=== PATIENT | female | born 1985 | race Caucasian/White ===

== ENCOUNTER → 2018-05-23 | Outpatient (CLI) | payer OTHER | LOC: OD 08:47 | PROVIDERS: ATTEND Family Medicine | DX: E03.9 Hypothyroidism, unspecified (principal) | CPT/HCPCS: 36415; 84443 ==

== ENCOUNTER → 2018-07-28 | Outpatient (CLI) | payer OTHER | LOC: OD 10:29 | PROVIDERS: ATTEND Family Medicine | DX: E03.9 Hypothyroidism, unspecified (principal) | CPT/HCPCS: 36415; 84443 ==

== ENCOUNTER → 2018-11-28 | Outpatient (CLI) | payer MEDICAID | LOC: OD 12:52 | PROVIDERS: ATTEND Family Medicine | DX: E03.9 Hypothyroidism, unspecified (principal) | CPT/HCPCS: 36415; 84443 ==

== ENCOUNTER 2019-01-25 07:30 | Inpatient (IN) | payer MEDICAID ==
[2019-01-19 12:27] LABS: HEMATOCRIT 36.5 % (36.0-47.0); HEMOGLOBIN 11.8 g/dL (12.0-15.5); MEAN CORPUSCULAR HEMOGLOBIN 25.7 pg (27.0-33.4); MEAN CORPUSCULAR HGB CONC 32.4 g/dL (32.0-36.0); MEAN CORPUSCULAR VOLUME 79 fl (80-97); PLATELET COUNT 453 10^3/uL (150-450); RED CELL DISTRIBUTION WIDTH 17.9 % (11.5-14.0); WHITE BLOOD COUNT 11.6 10^3/uL (4.0-10.5)
[2019-01-19 12:40] LABS: APPEARANCE,URINE CLOUDY; BILIRUBIN,URINE NEGATIVE (NEGATIVE); COLOR,URINE YELLOW; GLUCOSE, URINE NEGATIVE (NEGATIVE); KETONES,URINE NEGATIVE (NEGATIVE); LEUKOCYTE ESTERASE,URINE SMALL (NEGATIVE); NITRITE,URINE NEGATIVE (NEGATIVE); PROTEIN,URINE NEGATIVE (NEGATIVE); URINE SPECIFIC GRAVITY 1.012; UROBILINOGEN,URINE NEGATIVE mg/dL (<2.0)
[2019-01-19 12:45] LABS: ALANINE AMINOTRANSFERASE 35 U/L (9-52); ALBUMIN 4.2 g/dL (3.5-5.0); ALKALINE PHOSPHATASE 135 U/L (38-126); ANION GAP 12 (5-19); ASPARTATE AMINO TRANSFERASE 33 U/L (14-36); BILIRUBIN,DIRECT 0.2 mg/dL (0.0-0.4); BILIRUBIN,TOTAL 0.3 mg/dL (0.2-1.3); BLOOD UREA NITROGEN 9 mg/dL (7-20); CALCIUM 10.2 mg/dL (8.4-10.2); CARBON DIOXIDE 22 mmol/L (22-30); CHLORIDE 105 mmol/L (98-107); GLUCOSE 83 mg/dL (75-110); POTASSIUM 4.5 mmol/L (3.6-5.0); SODIUM 138.9 mmol/L (137-145); TOTAL PROTEIN 7.6 g/dL (6.3-8.2)
--- NOTE | 2019-01-19 13:32 | RADIOLOGY REPORT (SQ) ---
EXAM DESCRIPTION: CHEST PA/LATERAL COMPLETED DATE/TIME: 01/19/2019 11:49 am REASON FOR STUDY: PRE-OP COMPARISON: None. EXAM PARAMETERS: NUMBER OF VIEWS: two views TECHNIQUE: Digital Frontal and Lateral radiographic views of the chest acquired. RADIATION DOSE: NA LIMITATIONS: none FINDINGS: LUNGS AND PLEURA: No opacities, masses or pneumothorax. No pleural effusion. MEDIASTINUM AND HILAR STRUCTURES: No masses or contour abnormalities. HEART AND VASCULAR STRUCTURES: Heart normal size. No evidence for failure. BONES: No acute findings. HARDWARE: None in the chest. OTHER: No other significant finding. IMPRESSION: NO SIGNIFICANT RADIOGRAPHIC FINDING IN THE CHEST. TECHNICAL DOCUMENTATION: JOB ID: [id number] [employer]- All Rights Reserved Reading location - IP/workstation name: [email or web address]
--- NOTE | 2019-01-20 13:09 | EKG REPORT ---
SEVERITY:- BORDERLINE ECG - SINUS RHYTHM BORDERLINE T ABNORMALITIES, ANTERIOR LEADS : Confirmed by: Fabian Lau 20-Jan-2019 13:08:27
[2019-02-15] MEDS ORDERED: CEFAZOLIN 1 GM/D5W RTU 1 GM/50 ML RTUPB IV PRN (05:00)
[2019-02-15] MEDS ORDERED: LACTATED RINGERS 1000 ML IV PRN (05:00)
[2019-02-15] MEDS ORDERED: SUCCINYLCHOLINE CHLORIDE INJ 200 MG/10 ML VIAL ONE (09:56)
[2019-02-15] MEDS ORDERED: ONDANSETRON HCL INJ/PF 4 MG/2 ML SDV ONE (09:56)
[2019-02-15] MEDS ORDERED: LIDOCAINE 2% INJ-PF (20 MG/ML) 2 ML AMPUL ONE (09:56)
[2019-02-15] MEDS ORDERED: DEXAMETHASONE SOD PHOSPHATE INJ 4 MG/1 ML VIAL ONE (09:56)
[2019-02-15] MEDS ORDERED: KETOROLAC TROMETHAMINE 60 MG/2 ML SDV ONE (09:56)
[2019-02-15] MEDS ORDERED: ROCURONIUM BROMIDE INJ 50 MG/5 ML VIAL IV ONE (09:56)
[2019-02-15] MEDS ORDERED: CEFAZOLIN 1 GM/D5W RTU 1 GM/50 ML RTUPB IV ONE (11:09)
[2019-02-15] MEDS ORDERED: HYDROMORPHONE HCL INJ/PF 2 MG/ML AMPULE ONE (11:12)
[2019-02-15] MEDS ORDERED: FENTANYL CITRATE INJ/PF 100 MCG/2 ML AMPUL ONE (11:12)
[2019-02-15] MEDS ORDERED: MIDAZOLAM 2 MG/2 ML INJ ONE (11:12)
[2019-02-15] MEDS ORDERED: PROPOFOL INJ 200 MG/20 ML VIAL IV ONE (11:13)
[2019-02-15] MEDS ORDERED: ACETAMINOPHEN 1,000 MG/100 ML RTUPB IV ONE ×3 (11:13→19:00)
[2019-02-15] MEDS ORDERED: BUPIVACAINE HCL 0.5%-EPI 1:200000 INJ/PF 30 ML VIAL ONE (11:16)
[2019-02-15] MEDS ORDERED: FENTANYL CITRATE INJ/PF 100 MCG/2 ML AMPUL IV PRN ×3 (11:55)
[2019-02-15] MEDS ORDERED: MEPERIDINE HCL/PF INJ 25 MG/1 ML DISP.SYRIN IV PRN (11:55)
[2019-02-15] MEDS ORDERED: MORPHINE SULFATE 10 MG/ML INJ IV PRN (11:55)
[2019-02-15] MEDS ORDERED: DIPHENHYDRAMINE HCL 50 MG/ML VIAL IV PRN (11:55)
[2019-02-15] MEDS ORDERED: IBUPROFEN 800 MG TABLET PO PRN (14:15)
[2019-02-15] MEDS ORDERED: RINGERS SOLUTION,LACTATED 1,000 ML IV PRN (14:16)
[2019-02-15] MEDS: MORPHINE SULFATE 10 MG/ML INJ IV PRN ×2 (17:37→23:21)
[2019-02-15] MEDS: METRONIDAZOLE 500 MG/NS RTU 500 MG/100 ML RTUPB IV SCH (18:51)
[2019-02-15] MEDS: KETOROLAC TROMETHAMINE INJ/PF 30 MG/1 ML SDV IV SCH (22:16)
[2019-02-16] MEDS: OXYCODONE-ACETAMINOPHEN 5-325 MG TABLET PO PRN ×2 (02:38→08:10)
[2019-02-16] MEDS: METRONIDAZOLE 500 MG/NS RTU 500 MG/100 ML RTUPB IV SCH (05:05)
[2019-02-16] MEDS: KETOROLAC TROMETHAMINE INJ/PF 30 MG/1 ML SDV IV SCH (05:05)
--- NOTE | 2019-02-16 07:37 | OPERATIVE REPORT E ---
Operative Report NAME: AYDE CHOE : 1985 AGE: 33Y DATE OF SURGERY: 02/15/2019 ROOM: 210 PREOPERATIVE DIAGNOSES: 1. ABNORMAL UTERINE BLEEDING. 2. CHRONIC PELVIC PAIN. 3. PERSISTENT OVARIAN CYST. POSTOPERATIVE DIAGNOSES: 1. ABNORMAL UTERINE BLEEDING. 2. CHRONIC PELVIC PAIN. 3. PERSISTENT OVARIAN CYST. OPERATION: Laparoscopic assisted vaginal hysterectomy with right salpingo-oophorectomy and left salpingectomy. SURGEON: AKOSUA MENJIVAR M.D. GRAIN LOADER: Mimi Brown [facility] surgical instrument mechanic. ANESTHESIA: Eddie Diaz M.D. with general. FINDINGS: The uterus is sounded to approximately 14 cm. Boggy in appearance, consistent with adenomyosis. The tubes were normal in appearance on both sides and there was a follicular cyst of the right ovary. COMPLICATIONS: None. ESTIMATED BLOOD LOSS: 150 mL. SPECIMENS REMOVED: Uterus, cervix, and bilateral fallopian tubes and a right ovary. PROCEDURE IN DETAIL: The patient was taken to the operating room, prepared and draped in a normal sterile fashion in a dorsal lithotomy position. Under sterile conditions a Lutz catheter was placed to gravity. A sterile speculum was placed into the vagina and a Hulka clamp was placed in the cervix for uterine manipulation without difficulty. The speculum was removed. Gloves were changed and attention was turned to the upper portion of the case. An umbilical skin incision was made to accommodate a 5 mm port. A Veress needle was introduced into the abdomen and peritoneal cavity. Placement was confirmed with free flowing sterile water through the Veress. The abdomen was then inflated with approximately 2 liters of CO2 gas and Veress was removed and a 5 mm port was placed through this incision. The camera was introduced and the patient was placed in Trendelenburg. Two 5 mm ports were then placed on either side of the umbilicus approximately 10 cm on either side. Beginning with the left fallopian tube, this was removed using LigaSure and the utero-ovarian ligament was then transected and the left uterine artery was carefully skeletonized with LigaSure and blunt dissection. We continued with ligation of the uterine artery down to the level of the bladder flap and this was started again using LigaSure and blunt dissection. Attention was then turned to the right adnexa where the right IP ligament was located and this was transected using the LigaSure. And we continued ligation of the uterine ovarian ligament using the LigaSure and continued skeletonization of the uterine artery with this device as well. The uterine artery was again ligated using the LigaSure down to the level of the bladder flap, which was completed with LigaSure and blunt dissection. We continued with further ligation of the uterine artery on both sides using LigaSure until I felt that we were at the level of the internal cervical os. We then concluded this part of the procedure and went below to complete the hysterectomy. A weighted speculum was placed into the posterior vagina and a was placed just beneath the bladder. The cervix was grasped with a triple-tooth Ugo both anteriorly and posteriorly. The cervix was injected circumferentially using 10 mL of lidocaine 1% with epinephrine. This was massaged into the mucosa. The mucosa was then scored circumferentially around the cervix using a 10 blade and the mucosa was carefully sharply dissected using Mayos. The anterior cul-de-sac was then entered sharply using the Mayos and the was repositioned below the defect. Posteriorly the cul-de-sac was entered sharply with the Mayos as well and the weighted speculum was changed to a long weighted speculum. I then clamped both uterosacral ligaments using Jason clamps and these were suture ligated with 0-Vicryl and tagged with hemostats. The rest of the uterine artery was then transected using the LigaSure on both sides until the specimen was completely freed and removed through the defect. The weighted speculum was replaced with a short weighted speculum and the was repositioned to be able to visualize the anterior vaginal cuff. This was carefully inspected for hemostasis and there was no bleeding noted. The vaginal cuff was then closed with a running locked 0-Vicryl and the sutures were cut and the vaginal cuff was inspected and found to be intact. I then concluded this portion of the case and re-gloved and turned attention to the upper portion of the case. I re-inflated the abdomen with CO2 gas and inspected the peritoneal cavity once more to ensure hemostasis. The ureters were inspected and found to be peristalsing on both sides. The vaginal cuff was found to be intact with no signs of bleeding noted. The instruments were then removed and the abdomen was deflated through the umbilical port and trocars were all removed. The skin was closed at all 3 sites using 4-0 Vicryl. The patient tolerated the procedure well. Sponge, lap, and needle counts were correct x2 and the patient was taken to recovery in stable condition. DICTATING PHYSICIAN: AKOSUA MENJIVAR M.D. [id number] PHY#: [id number] ID: [id number] JOB#: [id number] ACCT: [id number] cc:AKOSUA MENJIVAR M.D. >
[2019-02-16 08:38] LABS: HEMATOCRIT 31.7 % (36.0-47.0); HEMOGLOBIN 10.1 g/dL (12.0-15.5); MEAN CORPUSCULAR HEMOGLOBIN 25.4 pg (27.0-33.4); MEAN CORPUSCULAR HGB CONC 31.9 g/dL (32.0-36.0); MEAN CORPUSCULAR VOLUME 80 fl (80-97); PLATELET COUNT 441 10^3/uL (150-450); RED BLOOD COUNT 3.99 10^6/uL (3.72-5.28); RED CELL DISTRIBUTION WIDTH 17.3 % (11.5-14.0); WHITE BLOOD COUNT 15.4 10^3/uL (4.0-10.5)
--- NOTE | 2019-02-16 10:58 | PDOC DISCHARGE SUMMARY ---
General - Admit/Disc Date/PCP Admission Date/Primary Care Provider: 02/15/19 09:31 ALIN BREAUX MD Discharge Date: 02/16/19 - Discharge Diagnosis (1) s/p right salpingo-oophorectomy Is this a current diagnosis for this admission?: Yes (2) Abnormal uterine and vaginal bleeding, unspecified Is this a current diagnosis for this admission?: Yes (3) Chronic pelvic pain in female Is this a current diagnosis for this admission?: Yes (4) Ovarian cyst Is this a current diagnosis for this admission?: Yes (5) S/P hysterectomy Is this a current diagnosis for this admission?: Yes - Additional Information Home Medications: Amitriptyline HCl [Elavil 25 mg Tablet] 25 mg PO QHS 02/15/19 Aripiprazole 5 mg PO DAILY 02/15/19 Atenolol [Tenormin] 25 mg PO DAILY 02/15/19 Baclofen 5 mg PO TID 02/15/19 Escitalopram Oxalate 20 mg PO HSP PRN 02/15/19 Hydrochlorothiazide 12.5 mg PO DAILY 02/15/19 Levothyroxine Sodium 137 mcg PO DAILY 02/15/19 Lorazepam [Ativan 0.5 mg Tablet] 0.5 mg PO Q4 PRN 02/15/19 Methylphenidate HCl [Ritalin] 20 mg PO DAILY 02/15/19 Pregabalin [Lyrica 100 Mg Capsule] 150 mg PO TID 02/15/19 Ranitidine HCl 150 mg PO DAILY 02/15/19 Venlafaxine HCl [Effexor 75 mg Tablet] 75 mg PO DAILY 02/15/19 Zolpidem Tartrate [Ambien 5 mg Tablet] 5 mg PO HSP PRN 02/15/19 History of Present Illness History of Present Illness: AYDE CHOE is a 33 year old female Hospital Course Hospital Course: underwent LAVH w/ RSO and left salpingectomy without difficulty. Unremarkable postoperative course. passing flatus and tolerating regular diet Physical Exam - Physical Exam Vital Signs: Temp Pulse Resp BP Pulse Ox 97.7 F 86 16 114/71 96 02/16/19 07:53 02/16/19 07:53 02/16/19 07:53 02/16/19 07:53 02/16/19 07:53 Intake & Output 02/15/19 02/16/1902/17/19 06:59 06:59 06:59 Intake Total 2830 Output Total 1050 Balance 1780 Weight 94.6 kg General appearance: PRESENT: no acute distress, cooperative - incisions clean/dry and intact Result Laboratory Results: 02/16/19 07:26 02/15/19 10:21 02/15/19 02/16/19 10:21 07:26 WBC 15.4 H RBC 3.99 Hgb 10.1 L Hct 31.7 L MCV 80 MCH 25.4 L MCHC 31.9 L RDW 17.3 H Plt Count 441 Potassium 4.1 Impressions: Chest X-Ray 01/19/19 00:00 IMPRESSION: NO SIGNIFICANT RADIOGRAPHIC FINDING IN THE CHEST. Plan Discharge Plan: discharge home with scheduled follow up Time Spent: Less than 30 Minutes Acute Heart Failure Is this a Heart Failure Patient?: No
[2019-02-16 11:35] VITALS: BP 107/69
== END 2019-02-16 11:56 | disposition home or self-care (01) | DRG 743 ==
LOC: EDSTATUS 02-15 09:00 → 2N 02-15 09:31 → OROUT 02-15 09:31
PROVIDERS: ADMIT Obstetrics & Gynecology; ATTEND Obstetrics & Gynecology
PROC: 0UT7FZZ Resection of Bilateral Fallopian Tubes, Via Natural or Artificial Opening With Percutaneous Endoscopic Assistance (ICD-10-PCS; 2019-02-15)
PROC: 0UT0FZZ Resection of Right Ovary, Via Natural or Artificial Opening With Percutaneous Endoscopic Assistance (ICD-10-PCS; 2019-02-15)
PROC: 0UT9FZZ Resection of Uterus, Via Natural or Artificial Opening With Percutaneous Endoscopic Assistance (ICD-10-PCS; principal; 2019-02-15 12:00)
DX: N92.1 Excessive and frequent menstruation with irregular cycle (principal); N83.201 Unspecified ovarian cyst, right side; G89.29 Other chronic pain; R10.2 Pelvic and perineal pain; F41.9 Anxiety disorder, unspecified; F31.9 Bipolar disorder, unspecified; G43.909 Migraine, unspecified, not intractable, without status migrainosus; Z83.3 Family history of diabetes mellitus; Z82.49 Family history of ischemic heart disease and other diseases of the circulatory system; Z79.899 Other long term (current) drug therapy
CPT/HCPCS: 36415; 71046; 80053; 81001; 81025; 840; 84132; 85027; 86850; 86900; 86901; 88307; 93005; 93010; J0131; J0330; J0690; J1100; J1170; J1885; J2250; J2270; J2405; J2704; J3010; J3490; J7120

== ENCOUNTER → 2019-05-23 | Outpatient (CLI) | payer MEDICAID ==
--- NOTE | 2019-05-23 12:12 | RADIOLOGY REPORT (SQ) ---
EXAM DESCRIPTION: WRIST LEFT 2 VIEWS COMPLETED DATE/TIME: 05/23/2019 10:57 am REASON FOR STUDY: PAIN IN LEFT WRIST M25.532 PAIN IN LEFT WRIST COMPARISON: None. NUMBER OF VIEWS: Two views. TECHNIQUE: AP and lateral radiographic images acquired of the left wrist. LIMITATIONS: None. FINDINGS: MINERALIZATION: Normal. BONES: No acute fracture or dislocation. No worrisome bone lesions. Ulnar positive variance. SOFT TISSUES: No soft tissue swelling. No foreign body. OTHER: No other significant finding. IMPRESSION: No evidence of fracture. Ulnar positive variance with mild widening at the distal radioulnar joint may represent ligamentous i njury. TECHNICAL DOCUMENTATION: JOB ID: [id number] [employer]- All Rights Reserved Reading location - IP/workstation name: [email or web address]
== END ==
LOC: OD 10:46
PROVIDERS: ATTEND Family Medicine
DX: M25.532 Pain in left wrist (principal)

== ENCOUNTER → 2019-07-09 | Outpatient (CLI) | payer MEDICAID ==
[2019-07-09 16:21] LABS: ABSOLUTE EOSINOPHILS # (AUTO) 0.2 10^3/uL (0.0-0.6); ABSOLUTE LYMPHOCYTES (AUTO) 2.1 10^3/uL (0.5-4.7); ABSOLUTE MONOCYTES (AUTO) 0.5 10^3/uL (0.1-1.4); ABSOLUTE NEUT (AUTO) 4.8 10^3/uL (1.7-8.2); BASOPHILS % (AUTO) 0.6 % (0-2); EOSINOPHILS % (AUTO) 2.7 % (0-6); HEMATOCRIT 36.1 % (36.0-47.0); HEMOGLOBIN 11.7 g/dL (12.0-15.5); LYMPHOCYTES % (AUTO) 27.8 % (13-45); MEAN CORPUSCULAR HGB CONC 32.4 g/dL (32.0-36.0); MEAN CORPUSCULAR VOLUME 77 fl (80-97); MONOCYTES % (AUTO) 6.5 % (3-13); PLATELET COUNT 520 10^3/uL (150-450); RED BLOOD COUNT 4.66 10^6/uL (3.72-5.28); RED CELL DISTRIBUTION WIDTH 17.4 % (11.5-14.0); SEGMENTED NEUTROPHILS % (AUTO) 62.4 % (42-78); TOTAL CELLS COUNTED % (AUTO) 100 %; WHITE BLOOD COUNT 7.7 10^3/uL (4.0-10.5)
[2019-07-09 16:44] LABS: ALBUMIN 4.3 g/dL (3.5-5.0); ALKALINE PHOSPHATASE 117 U/L (38-126); ANION GAP 13 (5-19); ASPARTATE AMINO TRANSFERASE 49 U/L (14-36); BILIRUBIN,DIRECT 0.1 mg/dL (0.0-0.4); BILIRUBIN,TOTAL 0.2 mg/dL (0.2-1.3); BLOOD UREA NITROGEN 7 mg/dL (7-20); CALCIUM 9.5 mg/dL (8.4-10.2); CARBON DIOXIDE 25 mmol/L (22-30); CHLORIDE 101 mmol/L (98-107); GLUCOSE 85 mg/dL (75-110); POTASSIUM 3.6 mmol/L (3.6-5.0); TOTAL PROTEIN 7.1 g/dL (6.3-8.2)
== END ==
LOC: OD 15:16
PROVIDERS: ATTEND Family Medicine
DX: M79.7 Fibromyalgia (principal); E03.9 Hypothyroidism, unspecified
CPT/HCPCS: 36415; 80053; 84443; 85025

== ENCOUNTER → 2019-08-10 | Outpatient (CLI) | payer MEDICAID ==
--- NOTE | 2019-08-10 10:03 | RADIOLOGY REPORT (SQ) ---
EXAM DESCRIPTION: MRI LT UPPER JOINT WITHOUT COMPLETED DATE/TIME: 08/10/2019 9:18 am REASON FOR STUDY: PAIN IN LEFT WRIST (M25.532), SECONDARY OA LEFT WRIST (M19.239), OTHER SPEC M24.83 2 OTH SPECIFIC JOINT DERANGEMENTS OF LEFT WRIST, NEC M19.239 SECONDARY OSTEOARTHRITIS, UNSPECIFIED WRIST M25.532 PAIN IN LEFT WRIST COMPARISON: None. TECHNIQUE: Left wrist images acquired and stored on PACS. Multiplanar images include fat sensitive sequences as T1, fluid sensitive sequences as FST2/STIR, cartilage sensitive sequences as FSPD, gradi ent echo sequences. LIMITATIONS: Motion. FINDINGS: BONE MARROW: No alteration of signal to suggest marrow replacement or edema. No occult fra cture. No large osteophytes. CARPAL ALIGNMENT AND ARTICULATION: Normal congruity of sigmoid notch at level of distal RUJ without p ositive or negative ulnar variance. Normal capitolunate angle. No widening of scapholunate articulati on. EFFUSION: None noted. No loose bodies. SCAPHOLUNATE LIGAMENT: Intact without tear. LUNATE-TRIQUETRAL LIGAMENT: Intact without tear. TFC COMPLEX: Radial and ulnar attachments normal. Meniscus intact. Extensor carpi ulnaris tendon norm al without tendinopathy. EXTRINSIC LIGAMENTS AND DISTAL RADIO-ULNAR JOINT: Dorsal and volar distal RUJ intact without subluxat ion of the distal ulna. 1-6 EXTENSOR COMPARTMENTS: Normal. Specifically no tendinopathy of the abductor pollicis longus or ex tensor pollicis brevis to suggest de Quervain's Syndrome. CARPAL TUNNEL AND MEDIAN NERVE: Normal volume and morphology of the carpal tunnel proximally at the l evel of the radiocarpal joint and distally at the hook of the hamate. No thickening or signal alterat ion of the median nerve. OTHER: No other significant finding. IMPRESSION: No acute findings. TECHNICAL DOCUMENTATION: JOB ID: [id number] [employer]- All Rights Reserved Reading location - IP/workstation name: [email or web address]
== END ==
LOC: RAD 08:29
PROVIDERS: ATTEND Orthopaedic Surgery
DX: M24.832 Other specific joint derangements of left wrist, not elsewhere classified (principal); M25.532 Pain in left wrist; M19.239 Secondary osteoarthritis, unspecified wrist

== ENCOUNTER → 2019-10-26 | Outpatient (CLI) | payer MEDICAID | LOC: OD 11:49 | PROVIDERS: ATTEND Family Medicine | DX: R53.83 Other fatigue (principal) | CPT/HCPCS: 36415; 84443 ==

== ENCOUNTER → 2019-12-06 | Outpatient (CLI) | payer MEDICAID ==
[2019-12-06 16:27] LABS: ABSOLUTE EOSINOPHILS # (AUTO) 0.3 10^3/uL (0.0-0.6); ABSOLUTE LYMPHOCYTES (AUTO) 1.8 10^3/uL (0.5-4.7); ABSOLUTE MONOCYTES (AUTO) 0.6 10^3/uL (0.1-1.4); ABSOLUTE NEUT (AUTO) 6.3 10^3/uL (1.7-8.2); BASOPHILS % (AUTO) 0.4 % (0-2); HEMATOCRIT 43.2 % (36.0-47.0); HEMOGLOBIN 14.4 g/dL (12.0-15.5); LYMPHOCYTES % (AUTO) 20.3 % (13-45); MEAN CORPUSCULAR HEMOGLOBIN 27.7 pg (27.0-33.4); MEAN CORPUSCULAR HGB CONC 33.2 g/dL (32.0-36.0); MEAN CORPUSCULAR VOLUME 83 fl (80-97); MONOCYTES % (AUTO) 6.5 % (3-13); PLATELET COUNT 425 10^3/uL (150-450); RED BLOOD COUNT 5.18 10^6/uL (3.72-5.28); RED CELL DISTRIBUTION WIDTH 17.3 % (11.5-14.0); SEGMENTED NEUTROPHILS % (AUTO) 69.8 % (42-78); TOTAL CELLS COUNTED % (AUTO) 100 %
[2019-12-06 16:49] LABS: ALBUMIN 4.4 g/dL (3.5-5.0); ALKALINE PHOSPHATASE 127 U/L (38-126); ANION GAP 8 (5-19); ASPARTATE AMINO TRANSFERASE 55 U/L (14-36); BILIRUBIN,TOTAL 0.2 mg/dL (0.2-1.3); BLOOD UREA NITROGEN 11 mg/dL (7-20); CALCIUM 10.1 mg/dL (8.4-10.2); CARBON DIOXIDE 28 mmol/L (22-30); CHLORIDE 105 mmol/L (98-107); GLUCOSE 109 mg/dL (75-110); POTASSIUM 4.6 mmol/L (3.6-5.0); TOTAL PROTEIN 7.8 g/dL (6.3-8.2)
== END ==
LOC: OD 15:05
PROVIDERS: ATTEND Psychiatry & Neurology Psychiatry
DX: Z79.899 Other long term (current) drug therapy (principal)
CPT/HCPCS: 36415; 80053; 84443; 85025

== ENCOUNTER → 2019-12-12 | Outpatient (CLI) | payer MEDICAID ==
[2019-12-12 11:07] LABS: CHOLESTEROL 252.26 mg/dL (0-200); TRIGLYCERIDES 191 mg/dL (<150)
[2019-12-12 11:18] LABS: DIRECT LDL 160 mg/dL (<100)
[2019-12-12 11:21] LABS: VLDL CHOLESTEROL 38.2 mg/dL (10-31)
== END ==
LOC: OD 10:02
PROVIDERS: ATTEND Family Medicine
DX: E03.9 Hypothyroidism, unspecified (principal); Z79.899 Other long term (current) drug therapy
CPT/HCPCS: 36415; 80061; 84443

== ENCOUNTER → 2020-02-15 | Outpatient (CLI) | payer MEDICAID | LOC: OD 10:34 | PROVIDERS: ATTEND Family Medicine | DX: E03.9 Hypothyroidism, unspecified (principal) | CPT/HCPCS: 36415; 84443 ==

== ENCOUNTER 2020-04-15 19:55 | Emergency (ER) | payer MEDICAID ==
[2020-04-15] MEDS ORDERED: DIPH/PERTUSS(ACELL)/TETANUS VAC/PF 0.5 ML SYR (>=10YO) IM ONE (20:54)
--- NOTE | 2020-04-15 20:56 | ER Document Report ---
ED Medical Screen (RME) - General Chief Complaint: Laceration Stated Complaint: FINGER INJURY Time Seen by Provider: 04/15/20 20:50 Primary Care Provider: ALIN BREAUX MD [Primary Care Provider] - Follow up as needed Mode of Arrival: Ambulatory Information source: Patient Notes: 33-year-old female presented to ED for laceration to the pad of the left thumb. She states she was cutting a spaghetti can about 1910 tonight. She states she went to throw the can away and the lead popped up cutting her thumb. She is alert oriented respirations regular nonlabored speaking in full sentences. She does not know when her last tetanus shot was so I have ordered her tetanus immunization in the dinh-area. She does have a history of high blood pressure hypothyroid scoliosis anxiety depression fibromyalgia breast implants hysterectomy. She will need sutures. I have greeted and performed a rapid initial assessment of this patient. A comprehensive ED assessment and evaluation of the patient, analysis of test results and completion of medical decision making process will be conducted by an additional ED providers. TRAVEL OUTSIDE OF THE [place] IN LAST 30 DAYS: No - Related Data Allergies/Adverse Reactions: promethazine [From Phenergan] Allergy (Severe, Verified 04/15/20 20:50) Anaphylaxis Past Medical History - Past Medical History Cardiac Medical History: Reports: Hx Hypertension Denies: Hx Coronary Artery Disease, Hx Heart Attack Pulmonary Medical History: Denies: Hx Asthma, Hx Bronchitis, Hx COPD, Hx Pneumonia Neurological Medical History: Denies: Hx Cerebrovascular Accident, Hx Seizures Musculoskeltal Medical History: Denies Hx Arthritis - Immunizations Hx Diphtheria, Pertussis, Tetanus Vaccination: Yes Physical Exam - Vital signs Vitals: Temp Pulse Resp BP Pulse Ox 98.7 F 113 H 20 114/74 99 04/15/20 20:02 04/15/20 20:02 04/15/20 20:02 04/15/20 20:02 04/15/20 20:02 Course - Vital Signs Vital signs: Temp Pulse Resp BP Pulse Ox 98.7 F 113 H 20 114/74 99 04/15/20 20:02 04/15/20 20:02 04/15/20 20:02 04/15/20 20:02 04/15/20 20:02 Doctor's Discharge - Discharge Referrals: BREAUX,SEQUIA A, MD [Primary Care Provider] - Follow up as needed
[2020-04-15] MEDS ORDERED: LIDOCAINE 1% INJ-PF (10 MG/ML) 30 ML SDV INJ ONE (22:29)
--- NOTE | 2020-04-15 22:30 | ER Document Report ---
HPI - HPI Time Seen by Provider: 04/15/20 20:50 Pain Level: 2 Context: Patient is a 33-year-old female that comes emergency department for chief complaint of laceration to the finger pad inside of the left thumb. She states that she accidentally cut her thumb on the lid of a metal can just prior to arrival. She denies any other injuries. Patient is unsure of tetanus status and she received an update in triage. She is not on blood thinner, denies history of diabetes, she has had a hysterectomy. Past Medical History - General Information source: Patient - Social History Smoking Status: Never Smoker Frequency of alcohol use: None Drug Abuse: None Lives with: Family Family History: Reviewed & Not Pertinent Patient has homicidal ideation: No - Past Medical History Cardiac Medical History: Reports: Hx Hypertension Denies: Hx Coronary Artery Disease, Hx Heart Attack Pulmonary Medical History: Denies: Hx Asthma, Hx Bronchitis, Hx COPD, Hx Pneumonia Neurological Medical History: Denies: Hx Cerebrovascular Accident, Hx Seizures Musculoskeletal Medical History: Denies Hx Arthritis - Immunizations Hx Diphtheria, Pertussis, Tetanus Vaccination: Yes Vertical Provider Document - CONSTITUTIONAL General Appearance: WD/WN, No Apparent Distress - INFECTION CONTROL TRAVEL OUTSIDE OF THE [place] IN LAST 30 DAYS: No - HEENT HEENT: Atraumatic, Normocephalic - RESPIRATORY Respiratory: Breath Sounds Normal, No Respiratory Distress - CARDIOVASCULAR Cardiovascular: Regular Rate, Regular Rhythm. negative: Tachycardia - GI/ABDOMEN Gastrointestinal: Abdomen Soft, Abdomen Non-Tender. negative: Abdomen Tender - BACK Back: Normal Inspection - MUSCULOSKELETAL/EXTREMETIES Musculoskeletal/Extremeties: MAEW, FROM, Tender - There is a 2 cm V-shaped laceration over the left lateral thumb including part of the thumb pad, partial- thickness. Easily explored, no evidence of tendon, large vessel, or nerve involvement. Unremarkable exam otherwise. Full strength and range of motion in flexion and extension and resistance. Course - Re-evaluation Re-evalutation: Evaluation easily explored, no concerning findings, cleaned thoroughly, closed. Discussed care, follow-up, return precautions. Patient states understanding and agreement. - Vital Signs Vital signs: Temp Pulse Resp BP Pulse Ox 98.7 F 113 H 20 114/74 99 04/15/20 20:50 04/15/20 20:02 04/15/20 20:02 04/15/20 20:02 04/15/20 20:02 Procedures - Laceration/Wound Repair left thumb Wound length (cm): 2 Wound's Depth, Shape: Irregular Laceration pre-procedure: Sterile PPE donned, Sterile drapes applied, Shur-Clens applied Anesthetic type: 1% Lidocaine Volume Anesthetic (mLs): 3 Wound explored: Clean, No foreign body removed Wound Repaired With: Sutures Suture Size/Type: 5:0, Ethilon Number of Sutures: 5 Layer Closure?: No Post-procedure wound care: Sterile dressing applied Post-procedure NV exam normal: Yes Complications: No Discharge - Discharge Clinical Impression: Laceration of left thumb Qualifiers: Encounter type: initial encounter Damage to nail status: without damage Foreign body presence: without foreign body Qualified Code(s): S61.012A - Laceration without foreign body of left thumb without damage to nail, initial encounter Condition: Stable Disposition: HOME, SELF-CARE Additional Instructions: The wound was repaired with sutures. Keep clean, clean with soap and water, dab dry, avoid soaking or scrubbing. You can apply thin film of topical antibiotic. Sutures need to be removed in about 7 days at a medical facility. Return sooner for any concerning symptoms including signs of infection such as developing pain, swelling, redness, discolored discharge, fever, or any other concerning symptoms. Referrals: ALIN BREAUX MD [Primary Care Provider] - Follow up as needed
[2020-04-15 23:56] VITALS: BP 102/65
== END 2020-04-16 | disposition home or self-care (01) ==
LOC: ER 19:55
DX: S61.012A Laceration without foreign body of left thumb without damage to nail, initial encounter (principal); W26.8XXA Contact with other sharp object(s), not elsewhere classified, initial encounter; Z23 Encounter for immunization; I10 Essential (primary) hypertension
CPT/HCPCS: 99282; 90471; 90715; 12001; J3490

== ENCOUNTER → 2020-05-07 | Outpatient (CLI) | payer MEDICAID ==
[2020-05-07 10:48] LABS: ALBUMIN 4.4 g/dL (3.5-5.0); ALKALINE PHOSPHATASE 86 U/L (38-126); ASPARTATE AMINO TRANSFERASE 34 U/L (14-36); BILIRUBIN,TOTAL 0.2 mg/dL (0.2-1.3); CHOLESTEROL 211.92 mg/dL (0-200); TOTAL PROTEIN 7.5 g/dL (6.3-8.2); TRIGLYCERIDES 254 mg/dL (<150)
[2020-05-07 10:59] LABS: DIRECT LDL 125 mg/dL (<100)
[2020-05-07 11:05] LABS: VLDL CHOLESTEROL 50.8 mg/dL (10-31)
== END ==
LOC: OD 09:31
PROVIDERS: ATTEND Family Medicine
DX: E03.9 Hypothyroidism, unspecified (principal); R94.5 Abnormal results of liver function studies; E78.89 Other lipoprotein metabolism disorders
CPT/HCPCS: 36415; 80061; 80076; 84443

== ENCOUNTER → 2020-06-23 | Outpatient (CLI) | payer MEDICAID | LOC: OD 11:03 | PROVIDERS: ATTEND Family Medicine | DX: E03.9 Hypothyroidism, unspecified (principal) | CPT/HCPCS: 36415; 84443 ==

== ENCOUNTER → 2020-07-02 | Outpatient (CLI) | payer MEDICAID ==
--- NOTE | 2020-07-02 11:40 | RADIOLOGY REPORT (SQ) ---
EXAM DESCRIPTION: U/S THYROID/SFT TISS HD NECK IMAGES COMPLETED DATE/TIME: 07/02/2020 8:52 am REASON FOR STUDY: E03.9 HYPOTHYROIDISM, UNSPECIFIED E03.9 HYPOTHYROIDISM, UNSPECIFIED COMPARISON: None. TECHNIQUE: Dynamic and static eng-scale images acquired of the thyroid gland. Selected additional c olor/power Doppler images recorded. All images stored to PACS. LIMITATIONS: None. FINDINGS: RIGHT LOBE: Normal size. Homogeneous echotexture. Single 9 x 8 x 9 mm hypoechoic nodule. This contains small cyst. It has a spongiform configuration. LEFT LOBE: Normal size. Homogeneous echotexture. No cystic or solid masses. ISTHMUS: Normal size. Homogeneous echotexture. No cystic or solid masses. OTHER: No other significant finding. IMPRESSION: Small spongiform lesion in the right lobe under 1 cm in size. This is a used TR 1 lesio n. No follow-up is needed. TECHNICAL DOCUMENTATION: JOB ID: [id number] 2010 [employer]- All Rights Reserved Reading location - IP/workstation name: [email or web address]
== END ==
LOC: RAD 08:10
PROVIDERS: ATTEND Family Medicine
DX: E03.9 Hypothyroidism, unspecified (principal); E04.1 Nontoxic single thyroid nodule
CPT/HCPCS: 76536

== ENCOUNTER → 2020-08-15 | Outpatient (CLI) | payer MEDICAID | LOC: OD 11:31 | PROVIDERS: ATTEND Family Medicine | DX: E03.9 Hypothyroidism, unspecified (principal) | CPT/HCPCS: 36415; 84443 ==

== ENCOUNTER 2020-09-07 09:58 | Emergency (ER) | payer MEDICAID ==
--- NOTE | 2020-09-07 10:26 | ER Document Report ---
ED Medical Screen (RME) - General Chief Complaint: Arm Pain Stated Complaint: RIGHT ARM PAIN Time Seen by Provider: 09/07/20 10:21 Primary Care Provider: ALIN BREAUX MD [Primary Care Provider] - Follow up as needed Notes: HPI: 35-year-old female with history of chronic pain issues including fibromyalgia and chronic degenerative disc disease who is on hydrocodone and Lyrica already presenting for 4 months of pain in the right antecubital region, right forearm region. No trauma. Hurts to bend the arm at the elbow. Denies chest pain shortness of breath shoulder pain neck pain. PHYSICAL EXAMINATION: There is tenderness through the right proximal forearm and antecubital region on palpation. Brachial radial and ulnar pulses are present in the right upper extremity I have greeted and performed a rapid initial assessment of this patient. A comprehensive ED assessment and evaluation of the patient, analysis of test results and completion of medical decision making process will be conducted by an additional ED providers. TRAVEL OUTSIDE OF THE [place] IN LAST 30 DAYS: No - Related Data Allergies/Adverse Reactions: promethazine [From Phenergan] Allergy (Severe, Verified 09/07/20 10:21) Anaphylaxis Past Medical History - Social History Chew tobacco use (# tins/day): No Drug Abuse: None - Past Medical History Cardiac Medical History: Reports: Hx Hypertension Denies: Hx Coronary Artery Disease, Hx Heart Attack Pulmonary Medical History: Denies: Hx Asthma, Hx Bronchitis, Hx COPD, Hx Pneumonia Neurological Medical History: Denies: Hx Cerebrovascular Accident, Hx Seizures Musculoskeltal Medical History: Denies Hx Arthritis - Immunizations Hx Diphtheria, Pertussis, Tetanus Vaccination: Yes Physical Exam - Vital signs Vitals: Temp Pulse Resp BP Pulse Ox 98.3 F 72 22 H 118/72 96 09/07/20 10:12 09/07/20 10:12 09/07/20 10:12 09/07/20 10:12 09/07/20 10:12 Course - Vital Signs Vital signs: Temp Pulse Resp BP Pulse Ox 98.3 F 72 22 H 118/72 96 09/07/20 10:12 09/07/20 10:12 09/07/20 10:12 09/07/20 10:12 09/07/20 10:12 Doctor's Discharge - Discharge Referrals: ALIN BREAUX MD [Primary Care Provider] - Follow up as needed
--- NOTE | 2020-09-07 12:36 | RADIOLOGY REPORT (SQ) ---
EXAM DESCRIPTION: VENOUS UNILATERAL UPPER IMAGES COMPLETED DATE/TIME: 09/07/2020 12:22 pm REASON FOR STUDY: right upper arm pain COMPARISON: None. TECHNIQUE: Dynamic and static eng scale and color images acquired of the right arm venous system. S elected spectral images acquired with additional compression and augmentation maneuvers. The contrala teral subclavian vein and internal jugular vein were also imaged. Images stored on PACS. LIMITATIONS: None. FINDINGS: INTERNAL JUGULAR VEIN: Normal phasicity, compression, augmentation. No visualized echogeni c material on eng scale. No defects on color images. Comparison opposite side normal. SUBCLAVIAN VEIN: Normal compression, augmentation. No visualized echogenic material on eng scale. No defects on color images. AXILLARY VEIN: Normal compression, augmentation. No visualized echogenic material on eng scale. No d efects on color images. BRACHIAL VEIN: Normal compression, augmentation. No visualized echogenic material on eng scale. No d efects on color images. BASILIC VEIN: Normal compression, augmentation. No visualized echogenic material on eng scale. No de fects on color images. CEPHALIC VEIN: Normal compression, augmentation. No visualized echogenic material on eng scale. No d efects on color images. OTHER: No other significant finding. CONTRALATERAL SUBCLAVIAN VEIN AND INTERNAL JUGULAR VEIN: Not imaged IMPRESSION: NO EVIDENCE DVT OR SVT IN THE RIGHT ARM. TECHNICAL DOCUMENTATION: JOB ID: [id number] 2010 [employer]- All Rights Reserved Reading location - IP/workstation name: [email or web address]
--- NOTE | 2020-09-07 12:50 | RADIOLOGY REPORT (SQ) ---
EXAM DESCRIPTION: ELBOW RIGHT OVER 2 VIEWS IMAGES COMPLETED DATE/TIME: 09/07/2020 11:33 am REASON FOR STUDY: elbow pain X 4 months no known injury. COMPARISON: None. NUMBER OF VIEWS: Four views. TECHNIQUE: AP, lateral, and both oblique radiographic images acquired of the right elbow. LIMITATIONS: None. FINDINGS: MINERALIZATION: Normal. BONES: No acute fracture or dislocation. No worrisome bone lesions. JOINT: No effusion. SOFT TISSUES: No soft tissue swelling. No foreign body. OTHER: No other significant finding. IMPRESSION: NEGATIVE STUDY OF THE RIGHT ELBOW. NO RADIOGRAPHIC EVIDENCE OF ACUTE INJURY. TECHNICAL DOCUMENTATION: JOB ID: [id number] 2010 [employer]- All Rights Reserved Reading location - IP/workstation name: [email or web address]
--- NOTE | 2020-09-07 13:17 | ER Document Report ---
Entered by ARMANDO SALINAS SCRIBE 09/07/20 1141 Acting as scribe for:BRANDON PELAEZ MD ED General - General Chief Complaint: Arm Pain Stated Complaint: RIGHT ARM PAIN Time Seen by Provider: 09/07/20 10:21 Primary Care Provider: ALIN BREAUX MD [Primary Care Provider] - Follow up as needed Mode of Arrival: Ambulatory Information source: Patient Notes: This 35 year old female patient presents to the emergency department today with complaints of right arm pain for the last four months. Patient indicates the area of the most pain is to the right forearm/elbow area. Patient is in pain management. She is on [place] 10 mg 4 times daily. There was no trauma or injury that she can remember. TRAVEL OUTSIDE OF THE [place] IN LAST 30 DAYS: No - Related Data Allergies/Adverse Reactions: promethazine [From Phenergan] Allergy (Severe, Verified 09/07/20 10:21) Anaphylaxis Past Medical History - General Information source: Patient - Social History Smoking Status: Unknown if Ever Smoked Cigarette use (# per day): No Chew tobacco use (# tins/day): No Frequency of alcohol use: None Drug Abuse: None Lives with: Family Family History: Reviewed & Not Pertinent Patient has homicidal ideation: No - Past Medical History Cardiac Medical History: Reports: Hx Hypertension Psychiatric Medical History: Reports: Hx Anxiety, Hx Attention Deficit Hyperactivity Disorder, Hx Borderline Personality Disorder, Hx Depression Past Surgical History: Reports: Hx Hysterectomy, Other - Right salpingo- oophorectomy - Immunizations Hx Diphtheria, Pertussis, Tetanus Vaccination: Yes Review of Systems - Review of Systems Constitutional: No symptoms reported EENT: No symptoms reported Cardiovascular: No symptoms reported Respiratory: No symptoms reported Gastrointestinal: No symptoms reported Genitourinary: No symptoms reported Female Genitourinary: No symptoms reported Musculoskeletal: See HPI, Other - Right elbow/forearm pain Skin: No symptoms reported Hematologic/Lymphatic: No symptoms reported Neurological/Psychological: No symptoms reported -: Yes All other systems reviewed and negative Physical Exam - Vital signs Vitals: Temp Pulse Resp BP Pulse Ox 98.3 F 72 22 H 118/72 96 09/07/20 10:12 09/07/20 10:12 09/07/20 10:12 09/07/20 10:12 09/07/20 10:12 - Notes Notes: Physical Exam: General: Alert, appears well. HEENT: Normocephalic. Atraumatic. PERRL. Extraocular movements intact. Oroph arynx clear. Neck: Supple. Non-tender. Respiratory: No respiratory distress. Clear and equal breath sounds bilaterally. Cardiovascular: Regular rate and rhythm. Abdominal: Obese. Non-tender. No distension. Normal Bowel Sounds. Back: No gross abnormalities. Extremities: Moves all four extremities. Upper extremities: Normal inspection. Normal ROM. Lower extremities: No ligamentous laxity or tenderness of right elbow. Negative anterior/posterior drawer testing of the right elbow. Forearm muscles are tender with palpation. Right radial head tenderness to palpation. Neurological: Normal cognition. AAOx4. Normal speech. Psychological: Normal affect. Normal Mood. Skin: Warm. Dry. Normal color. Course - Re-evaluation Re-evalutation: 09/07/20 13:19 The patient's pain is over the radial head, and in the forearm muscles. The x- ray is unremarkable. - Vital Signs Vital signs: Temp Pulse Resp BP Pulse Ox 98.3 F 72 22 H 118/72 96 09/07/20 10:12 09/07/20 10:12 09/07/20 10:12 09/07/20 10:12 09/07/20 10:12 - Laboratory Result Diagrams: 09/07/20 13:35 09/07/20 13:35 Laboratory results interpreted by me: 09/07/20 13:35 Carbon Dioxide 34 H BUN 5 L Total Protein 6.2 L - Diagnostic Test Radiology reviewed: Image reviewed, Reports reviewed - Right x-ray is unremarkable. Discharge - Discharge Clinical Impression: Strain of other muscles, fascia and tendons at forearm level, right arm, initial encounter Condition: Stable Disposition: HOME, SELF-CARE Additional Instructions: Muscle Strain: You have strained the muscles in your right forearm and elbow. This often occurs with strenuous exertion, or during an injury that suddenly stretches the muscle. The seriousness of a strain varies. Some strains heal within days, others cause problems for months. X-rays cannot show a muscle strain. X-rays are taken only if symptoms suggest that a fracture could be present. The usual treatment of a muscle strain is rest and ice packs. Sometimes a sling may be necessary to rest the muscle. The muscle can be used again once pain subsides. Severe strains require a special exercise and stretching program to prevent permanent stiffness and disability. Your doctor will advise you if this will be necessary. Call the doctor immediately if pain or swelling becomes severe, or if numbness or discoloration develop. Use the sling to allow the muscles in your forearm and elbow to rest. Continue your regular medications. Add ibuprofen 600 mg every 8 hours if you are not currently taking that medication. Follow-up with your primary care provider if not improving over the next 1 to 2 weeks. RETURN TO THE EMERGENCY ROOM IF ANY NEW OR WORSENING SYMPTOMS. Referrals: ALIN BREAUX MD [Primary Care Provider] - Follow up as needed I personally performed the services described in the documentation, reviewed and edited the documentation which was dictated to the scribe in my presence, and it accurately records my words and actions.
[2020-09-07 14:08] LABS: ALBUMIN 3.8 g/dL (3.5-5.0); ALKALINE PHOSPHATASE 68 U/L (38-126); ANION GAP 5 (5-19); ASPARTATE AMINO TRANSFERASE 30 U/L (14-36); BILIRUBIN,DIRECT 0.1 mg/dL (0.0-0.4); BILIRUBIN,TOTAL 0.5 mg/dL (0.2-1.3); BLOOD UREA NITROGEN 5 mg/dL (7-20); CALCIUM 9.9 mg/dL (8.4-10.2); CARBON DIOXIDE 34 mmol/L (22-30); CHLORIDE 103 mmol/L (98-107); CREATINE KINASE 76 U/L (30-135); GLUCOSE 99 mg/dL (75-110); TOTAL PROTEIN 6.2 g/dL (6.3-8.2)
[2020-09-07 14:20] LABS: ABSOLUTE EOSINOPHILS # (AUTO) 0.2 10^3/uL (0.0-0.6); ABSOLUTE LYMPHOCYTES (AUTO) 1.6 10^3/uL (0.5-4.7); ABSOLUTE MONOCYTES (AUTO) 0.6 10^3/uL (0.1-1.4); ABSOLUTE NEUT (AUTO) 4.2 10^3/uL (1.7-8.2); BASOPHILS % (AUTO) 0.6 % (0-2); EOSINOPHILS % (AUTO) 2.5 % (0-6); HEMATOCRIT 38.9 % (36.0-47.0); HEMOGLOBIN 13.3 g/dL (12.0-15.5); LYMPHOCYTES % (AUTO) 23.7 % (13-45); MEAN CORPUSCULAR HEMOGLOBIN 29.8 pg (27.0-33.4); MEAN CORPUSCULAR HGB CONC 34.2 g/dL (32.0-36.0); MEAN CORPUSCULAR VOLUME 87 fl (80-97); MONOCYTES % (AUTO) 9.4 % (3-13); PLATELET COUNT 360 10^3/uL (150-450); RED BLOOD COUNT 4.47 10^6/uL (3.72-5.28); RED CELL DISTRIBUTION WIDTH 13.9 % (11.5-14.0); SEGMENTED NEUTROPHILS % (AUTO) 63.8 % (42-78); TOTAL CELLS COUNTED % (AUTO) 100 %; WHITE BLOOD COUNT 6.6 10^3/uL (4.0-10.5)
[2020-09-07 15:26] VITALS: BP 121/72
== END 2020-09-07 15:26 | disposition home or self-care (01) ==
LOC: ER 09:58
DX: S56.911A Strain of unspecified muscles, fascia and tendons at forearm level, right arm, initial encounter (principal); X58.XXXA Exposure to other specified factors, initial encounter; M89.8X2 Other specified disorders of bone, upper arm; I10 Essential (primary) hypertension; Z79.899 Other long term (current) drug therapy; Z87.892 Personal history of anaphylaxis; Z88.8 Allergy status to other drugs, medicaments and biological substances
CPT/HCPCS: 36415; 80053; 82550; 85025; 93971; 99285

== ENCOUNTER → 2020-09-30 | Outpatient (CLI) | payer MEDICAID ==
--- NOTE | 2020-10-01 15:13 | NEURO WORKBENCH EEG REPORT ---
EEG Report Patient: Janette Sanchez ID: [id number] Referring Doctor: Good Telles MD DOS: 09/30/2020 Medications: baclofen, vyvanse, ferrous sulfate, levothyroxine, vraylar, pregabalin, zolpidem, trazodone, pantoprazole, HCTZ, atenolol, hydrocodone/acetaminophen History This is a 35 year old right handed female with a history of hypertension, hyperthyroidism, fibromyalgia, anxiety, depression, bipolar disorder, PTSD, DDD, opiate analgesics, and migraines. This EEG was requested for headaches. EEG Interpretation This EEG was recorded in the awake, drowsy, and sleep states. The awake EEG is characterized by a well-organized background with a well-developed and reactive posterior dominant rhythm of 11 Hz. The remainder of the background was characterized by a combination of alpha with some beta frequencies. Drowsiness was characterized by slowing of the background rhythms. Vertex waves and sleep spindles were seen in the midline head regions. Photic stimulation resulted in no significant changes. There were no epileptiform abnormalities. The EKG showed a regular rhythm. EEG Classification * Normal EEG Impression This EEG is within normal limits for age. INTERPRETING NEUROLOGIST: Shannon Garnett MD, [facility] Board Certified in Neurology, with special qualification in Child Neurology, and in Clinical Neurophysiology [facility]
== END ==
LOC: NEURO 12:41
PROVIDERS: ATTEND Pediatrics
DX: G43.809 Other migraine, not intractable, without status migrainosus (principal); Z79.891 Long term (current) use of opiate analgesic
CPT/HCPCS: 95819